=== PATIENT | male | born 1995 | race Two or more races ===

== ENCOUNTER 2018-12-23 07:45 | Emergency (ER) | payer MEDICAID, OTHER ==
[~2018-12-23] VITALS: Ht 167.6 cm; Wt 165.6 kg
[2018-12-23 07:57] VITALS: BP 149/88
== END 2018-12-23 09:23 | disposition home or self-care (01) ==
LOC: ER 07:45
DX: Z77.21 Contact with and (suspected) exposure to potentially hazardous body fluids (principal); F17.210 Nicotine dependence, cigarettes, uncomplicated; F10.10 Alcohol abuse, uncomplicated; E66.01 Morbid (severe) obesity due to excess calories; Z68.43 Body mass index [BMI] 50.0-59.9, adult